=== PATIENT | male | born 1950 | race Caucasian/White ===

== ENCOUNTER 2020-04-25 00:05 | Emergency (ER) | payer MEDICARE ==
[~2020-04-25] VITALS: Ht 190.5 cm; Wt 80.7 kg
== END 2020-04-25 03:04 | disposition home or self-care (01) ==
LOC: ED 00:05
DX: S02.2XXA Fracture of nasal bones, initial encounter for closed fracture (principal); S01.81XA Laceration without foreign body of other part of head, initial encounter; W18.39XA Other fall on same level, initial encounter; Y93.89 Activity, other specified; Y92.89 Other specified places as the place of occurrence of the external cause; Y99.8 Other external cause status